=== PATIENT | female | born 1960 | race Caucasian/White ===

== ENCOUNTER 2019-12-20 13:55 | Emergency (ER) | payer OTHER ==
[2019-12-20 14:15] LABS: Glucose,Whole Blood 153 mg/dL (75-99)
[2019-12-20 14:18] VITALS: RESP 18; TEMP 97.8
[2019-12-20 14:43] LABS: Basophils % (A) 1 %; Eosinophils # (A) 0.2 k/uL (0-0.7); Eosinophils % (A) 3 %; HGB 14.8 gm/dL (11.4-16.0); Lymphocytes # (A) 1.5 k/uL (1.0-4.8); Lymphocytes % (A) 22 %; MCH 28.3 pg (25.0-35.0); MCHC 32.1 g/dL (31.0-37.0); MCV 88.1 fL (80.0-100.0); Mean Platelet Volume 7.5; Monocytes # (A) 0.4 k/uL (0-1.0); Monocytes % (A) 6 %; Neutrophils # (A) 4.5 k/uL (1.3-7.7); Neutrophils % (A) 65 %; Platelet Count 307 k/uL (150-450); RBC 5.23 m/uL (3.80-5.40); RDW 12.8 % (11.5-15.5); WBC 6.8 k/uL (3.8-10.6)
[2019-12-20 14:53] LABS: African American GFR (CKD) >90 (>60 ml/min/1.73 sqM); Anion Gap 11 mmol/L; Blood Urea Nitrogen 15 mg/dL (7-17); Calcium 9.4 mg/dL (8.4-10.2); Carbon Dioxide 24 mmol/L (22-30); Chloride 104 mmol/L (98-107); Glucose 160 mg/dL (74-99); Non-African American GFR(CKD) >90 (>60 ml/min/1.73 sqM); Potassium 4.6 mmol/L (3.5-5.1); Sodium 139 mmol/L (137-145)
[2019-12-20] MEDS ORDERED: valACYclovir HCL 1,000 MG TABLET PO STA (15:08)
[2019-12-20] MEDS ORDERED: ERYTHROMYCIN 5 MG/GM OPHTH OINT 3.5 GM TUBE LEFT EYE STA (15:09)
[2019-12-20] MEDS ORDERED: predniSONE 20 MG TAB PO STA (15:09)
[2019-12-20] MEDS ORDERED: LABETALOL 5 MG/ML VIAL MDV IVP STA (15:12)
--- NOTE | 2019-12-20 15:12 | ED ---
General Adult HPI - General Chief complaint: Neuro Symptoms/Deficit Stated complaint: facial numbness Time Seen by Provider: 12/20/19 14:12 Source: patient Mode of arrival: ambulatory Limitations: no limitations - History of Present Illness Initial comments: Dictation was produced using [employer] dictation software. please excuse any grammatical, word or spelling errors. Chief Complaint: 59-year-old female with left-sided facial weakness History of Present Illness: 59-year-old female she has past medical history of hypertension she presents today with acute onset left-sided facial weakness. She woke up with the symptoms at approximately 3 AM. She went to bed last night without any issues. Patient states that she went to an urgent care where they told her it was likely De La Garza palsy but instructed to come to the emergency department to obtain a CT to rule out CVA. Patient has no other complaints at this time. No visual deficits or visual issues. She does complain of some mild watering to the left eye. She denies any headache or pain complaints. The ROS documented in this emergency department record has been reviewed and confirmed by me. Those systems with pertinent positive or negative responses have been documented in the HPI. All other systems are other negative and/or noncontributory. PHYSICAL EXAM: General Impression: Alert and oriented x3, not in acute distress HEENT: Normocephalic atraumatic, extra-ocular movements intact, pupils equal and reactive to light bilaterally, mucous membranes moist. Cardiovascular: Heart regular rate and rhythm, S1&S2 audible, no murmurs, rubs or gallops Chest: Lungs clear to auscultation bilaterally, no rhonchi, no wheeze, no rales Abdomen: Bowel sounds present, abdomen soft, non-tender, non-distended, no organomegaly Musculoskeletal: Pulses present and equal in all extremities, no peripheral edema Motor: no focal deficits noted Neurological: Left-sided facial droop with weakness to left periorbital muscles and left lateral periorbital tissues, no focal motor or sensory deficits noted Skin: Intact with no visualized rashes Psych: Normal affect and mood ED course: 59-year-old female with clinical presentation consistent with De La Garza palsy. As upon arrival shows blood pressure 214/100, rest of vital signs within acceptable limits. Laboratory evaluation obtained. CBC unremarkable. Metabolic panel is negative. Patient observed in emergency department for couple hours with no change. At this point no concern for CVA given that there are no other focal neurologic deficits. No lateral rectus palsy or cranial nerves deficit to suggest brainstem stroke. Patient's well-appearing at bedside. No skin changes to the face. Patient counseled on appropriate cornea care. She also started on antivirals and steroids medications patient given referral to ophthalmology for outpatient management of cornea care. Patient told to return to the emergency department she develops any new or worsening neurologic symptoms. She is understandable and agreeable to plan. Other return parameters discussed. All questions answered. Patient's blood pressure was persistently high. She was given labetalol. She reports that she has chronic hypertension. She has an appointment with her primary care doctor for outpatient management of blood pressure issues. EKG interpretation: Ventricular rate 99, sinus rhythm, TX interval 166, QRS 76, QTC 451. No TX prolongation, no QTC prolongation, no ST or T-wave changes noted. EKG compared to [default value] showing no changes. Overall, this EKG is unremarkable - Related Data Previous Rx's Medication Instructions Recorded Artificial Tears-Hypromellose 1 drops LEFT EYE TID #1 bottle 12/20/19 [Artificial Tear Drops] Erythromycin Ophth Oint [Romycin 1 applic LEFT EYE DAILY #1 bottle 12/20/19 Ophth Oint] predniSONE 80 mg PO DAILY 7 Days #14 tab 12/20/19 valACYclovir HCL [Valtrex] 1,000 mg PO DAILY 7 Days #7 tablet 12/20/19 Allergies Allergy/AdvReac Type Severity Reaction Status Date / Time sulfamethoxazole Allergy Anaphylaxis Verified 12/20/19 14:40 [From Bactrim] trimethoprim [From Bactrim] Allergy Anaphylaxis Verified 12/20/19 14:40 codeine AdvReac Nausea & Verified 12/20/19 14:40 Vomiting Review of Systems ROS Statement: Those systems with pertinent positive or pertinent negative responses have been documented in the HPI. ROS Other: All systems not noted in ROS Statement are negative. Past Medical History Past Medical History: Hypertension Past Surgical History: No Surgical Hx Reported Past Psychological History: No Psychological Hx Reported Smoking Status: Never smoker Past Alcohol Use History: None Reported Past Drug Use History: None Reported General Exam Limitations: no limitations Course Vital Signs 12/20/19 12/20/19 12/20/19 13:56 14:05 14:21 Temperature 98.2 F 97.8 F Pulse Rate 95 89 80 Respiratory 20 18 18 Rate Blood Pressure 250/118 215/117 214/100 O2 Sat by Pulse 98 97 98 Oximetry Medical Decision Making - Lab Data Result diagrams: 12/20/19 14:24 12/20/19 14:24 Lab Results 12/20/19 12/20/19 12/20/19 Range/Units 14:13 14:24 14:24 WBC 6.8 (3.8-10.6) k/uL RBC 5.23 (3.80-5.40) m/uL Hgb 14.8 (11.4-16.0) gm/dL Hct 46.0 (34.0-46.0) % MCV 88.1 (80.0-100.0) fL MCH 28.3 (25.0-35.0) pg MCHC 32.1 (31.0-37.0) g/dL RDW 12.8 (11.5-15.5) % Plt Count 307 (150-450) k/uL Neutrophils % 65 % Lymphocytes % 22 % Monocytes % 6 % Eosinophils % 3 % Basophils % 1 % Neutrophils # 4.5 (1.3-7.7) k/uL Lymphocytes # 1.5 (1.0-4.8) k/uL Monocytes # 0.4 (0-1.0) k/uL Eosinophils # 0.2 (0-0.7) k/uL Basophils # 0.0 (0-0.2) k/uL Sodium 139 (137-145) mmol/L Potassium 4.6 (3.5-5.1) mmol/L Chloride 104 (98-107) mmol/L Carbon Dioxide 24 (22-30) mmol/L Anion Gap 11 mmol/L BUN 15 (7-17) mg/dL Creatinine 0.65 (0.52-1.04) mg/dL Est GFR (CKD-EPI)AfAm >90 (>60 ml/min/1.73 sqM) Est GFR (CKD-EPI)NonAf >90 (>60 ml/min/1.73 sqM) Glucose 160 H (74-99) mg/dL POC Glucose (mg/dL) 153 H (75-99) mg/dL POC Glu Film Waxer ID Abad [place] Calcium 9.4 (8.4-10.2) mg/dL Disposition Clinical Impression: De La Garza palsy Disposition: HOME SELF-CARE Condition: Good Instructions (If sedation given, give patient instructions): De La Garza Palsy (ED) Additional Instructions: The medications were sent to preferred pharmacy You were diagnosed with De La Garza palsy. ER cornea is at risk for injury which may lead to vision loss 1. You are instructed to provide herself with artificial tears every 2 hours while awake. 2. At night, apply erythromycin and tape her eye shut. 3. You are advised to have an eye shield that does not make contact with the eye or eyelid 4. Follow-up with ophthalmology 5. Take antivirals and steroids as instructed Prescriptions: Artificial Tears-Hypromellose [Artificial Tear Drops] 1 drops LEFT EYE TID #1 bottle predniSONE 80 mg PO DAILY 7 Days #14 tab Erythromycin Ophth Oint [Romycin Ophth Oint] 1 applic LEFT EYE DAILY #1 bottle valACYclovir HCL [Valtrex] 1,000 mg PO DAILY 7 Days #7 tablet Is patient prescribed a controlled substance at d/c from ED?: No Referrals: Rogelio Mejia DO [Primary Care Provider] - 1-2 days Wilian Chavis MD [STAFF PHYSICIAN] - 1-2 days Time of Disposition: 15:35
[2019-12-20 15:29] LABS: Glucose,Whole Blood 112 mg/dL (75-99)
[2019-12-20 15:45] VITALS: BP 170/118; PULSE 82
== END 2019-12-20 15:49 | disposition home or self-care (01) ==
LOC: EC 13:55
DX: G51.0 Bell's palsy (principal); I10 Essential (primary) hypertension; Z88.1 Allergy status to other antibiotic agents; Z88.2 Allergy status to sulfonamides; Z88.5 Allergy status to narcotic agent
CPT/HCPCS: 36415; 80048; 85025; 99284; J7512

== ENCOUNTER 2021-07-10 11:22 | Inpatient (IN) | payer OTHER ==
[2021-07-10 12:09] LABS: Basophils # (A) 0.1 k/uL (0-0.2); Basophils % (A) 1 %; Eosinophils # (A) 0.4 k/uL (0-0.7); Eosinophils % (A) 5 %; HCT 42.3 % (34.0-46.0); Lymphocytes # (A) 2.2 k/uL (1.0-4.8); Lymphocytes % (A) 26 %; MCH 31.3 pg (25.0-35.0); MCHC 35.5 g/dL (31.0-37.0); MCV 88.2 fL (80.0-100.0); Mean Platelet Volume 7.6; Monocytes # (A) 0.4 k/uL (0-1.0); Monocytes % (A) 5 %; Neutrophils % (A) 60 %; Platelet Count 285 k/uL (150-450); RDW 13.5 % (11.5-15.5); WBC 8.4 k/uL (3.8-10.6)
--- NOTE | 2021-07-10 12:09 | CT ---
EXAMINATION TYPE: CT brain wo con for TPA DATE OF EXAM: 07/10/2021 COMPARISON: None HISTORY: Right sided weakness TECHNIQUE: CT scan of the head performed without contour CT DLP: 1171 mGycm Automated exposure control for dose reduction was used. FINDINGS: No evidence for acute intracranial hemorrhage, midline shift or mass effect. The pereira-white matter di fferentiation is preserved. CSF spaces and ventricular system are normal in configuration. Posterior fossa contents are within normal limit. Mild patchy low-attenuation in the deep white matter periventricular region suggesting chronic microv ascular ischemic changes. There is streak artifact from the temporal bones which causes low-attenuation appearance to the brain stem. No acute orbital, osseous or soft tissue abnormalities seen. Paranasal sinuses and mastoid air cells are well aerated. There are sclerotic calcifications are seen in the intracranial internal carotid arteries. IMPRESSION: NO EVIDENCE FOR ACUTE INTRACRANIAL HEMORRHAGE, MIDLINE SHIFT OR MASS EFFECT. See body of report for incidental findings.
[2021-07-10 12:13] LABS: ALT 30 U/L (4-34); AST 24 U/L (14-36); African American GFR (CKD) >90 (>60 ml/min/1.73 sqM); Albumin 4.2 g/dL (3.5-5.0); Alkaline Phosphatase 94 U/L (38-126); Anion Gap 13 mmol/L; Blood Urea Nitrogen 16 mg/dL (7-17); Calcium 9.9 mg/dL (8.4-10.2); Carbon Dioxide 22 mmol/L (22-30); Chloride 105 mmol/L (98-107); Glucose 153 mg/dL (74-99); Non-African American GFR(CKD) >90 (>60 ml/min/1.73 sqM); Potassium 3.8 mmol/L (3.5-5.1); Sodium 140 mmol/L (137-145); Total Bilirubin 0.4 mg/dL (0.2-1.3)
--- NOTE | 2021-07-10 12:27 | ED ---
General Adult HPI - General Chief complaint: Weakness Stated complaint: rt sided weakness Source: patient Mode of arrival: ambulatory Limitations: no limitations - History of Present Illness Initial comments: 60-year-old female who presents to the emergency department with the acute onset of right-sided weakness. The patient states that she was at work when she had sudden onset of weakness in her right upper and right lower extremity. Symptom onset was at 10:45 AM. She denies any vision changes or speech difficulty. No previous history of stroke. Patient is not on any blood thinners. She denies a headache. No chest pain or shortness of breath. No fevers or chills. No other alleviating, precipitating or modifying factors - Related Data Home Medications Medication Instructions Recorded Confirmed No Known Home Medications 07/10/21 07/10/21 Allergies Allergy/AdvReac Type Severity Reaction Status Date / Time sulfamethoxazole Allergy Anaphylaxis Verified 07/10/21 12:45 [From Bactrim] trimethoprim [From Bactrim] Allergy Anaphylaxis Verified 07/10/21 12:45 codeine AdvReac Nausea & Verified 07/10/21 12:45 Vomiting Review of Systems ROS Statement: Those systems with pertinent positive or pertinent negative responses have been documented in the HPI. ROS Other: All systems not noted in ROS Statement are negative. Past Medical History Past Medical History: Hypertension Past Surgical History: No Surgical Hx Reported Past Psychological History: No Psychological Hx Reported Smoking Status: Never smoker Past Alcohol Use History: None Reported Past Drug Use History: None Reported General Exam Limitations: no limitations Course Vital Signs 07/10/21 07/10/21 07/10/21 11:25 12:01 13:00 Temperature 97.4 F L Pulse Rate 83 82 73 Respiratory 20 18 Rate Blood Pressure 216/111 239/101 222/111 O2 Sat by Pulse 94 L 98 Oximetry 07/10/21 07/10/21 13:47 14:58 Temperature Pulse Rate 90 80 Respiratory 18 18 Rate Blood Pressure 230/101 152/89 O2 Sat by Pulse 98 98 Oximetry EKG Findings - EKG Comments: EKG Findings:: EKG demonstrates a sinus rhythm with a ventricular rate of 84. Urine 122. QRS 84. QTC of 446. Some ST depression in lead 2 as well as V5 and V6. No acute ST segment elevation. Medical Decision Making - Medical Decision Making Upon arrival the patient was placed into room trauma 2. A thorough history and physical exam is performed. She is placed on continuous pulse ox and cardiac monitoring. NIH is assessed and is 54 weakness in the right upper, right lower extremity with ataxia. Code stroke is activated. Patient was immediately sent over for CT as well as CT angiography. The neuro cutting machine offbearer is paged and we are awaiting call back. Laboratory studies are reviewed and are all within normal limits. CT of the patient's brain is performed which demonstrates no evidence for acute intracranial hemorrhage, midline shift or mass effect she is reevaluated and has had complete improvement in her symptoms. Due to this the patient is not a TPA candidate. I did recommend admission for concern of possible TIA. Patient remains hypertensive and therefore she is given 10 mg of labetalol. Patient also given aspirin and a statin. Patient admitted to the hospital. Spoke with who agreed to admit the patient. I will place neurology consult. Patient remained in neurologically stable condition and was taken to the floor - Lab Data Result diagrams: 07/10/21 11:58 07/10/21 11:58 Lab Results 07/10/21 07/10/21 07/10/21 Range/Units 11:58 11:58 11:58 WBC 8.4 (3.8-10.6) k/uL RBC 4.80 (3.80-5.40) m/uL Hgb 15.0 (11.4-16.0) gm/dL Hct 42.3 (34.0-46.0) % MCV 88.2 (80.0-100.0) fL MCH 31.3 (25.0-35.0) pg MCHC 35.5 (31.0-37.0) g/dL RDW 13.5 (11.5-15.5) % Plt Count 285 (150-450) k/uL MPV 7.6 Neutrophils % 60 % Lymphocytes % 26 % Monocytes % 5 % Eosinophils % 5 % Basophils % 1 % Neutrophils # 5.0 (1.3-7.7) k/uL Lymphocytes # 2.2 (1.0-4.8) k/uL Monocytes # 0.4 (0-1.0) k/uL Eosinophils # 0.4 (0-0.7) k/uL Basophils # 0.1 (0-0.2) k/uL PT 9.7 (9.0-12.0) sec INR 0.9 (<1.2) APTT 22.5 (22.0-30.0) sec Sodium 140 (137-145) mmol/L Potassium 3.8 (3.5-5.1) mmol/L Chloride 105 (98-107) mmol/L Carbon Dioxide 22 (22-30) mmol/L Anion Gap 13 mmol/L BUN 16 (7-17) mg/dL Creatinine 0.66 (0.52-1.04) mg/dL Est GFR (CKD-EPI)AfAm >90 (>60 ml/min/1.73 sqM) Est GFR (CKD-EPI)NonAf >90 (>60 ml/min/1.73 sqM) Glucose 153 H (74-99) mg/dL Calcium 9.9 (8.4-10.2) mg/dL Total Bilirubin 0.4 (0.2-1.3) mg/dL AST 24 (14-36) U/L ALT 30 (4-34) U/L Alkaline Phosphatase 94 (38-126) U/L Troponin I (0.000-0.034) ng/mL Total Protein 7.0 (6.3-8.2) g/dL Albumin 4.2 (3.5-5.0) g/dL TSH (0.465-4.680) mIU/L Urine Color Urine Appearance (Clear) Urine pH (5.0-8.0) Ur Specific [place] (1.001-1.035) Urine Protein (Negative) Urine Glucose (UA) (Negative) Urine Ketones (Negative) Urine Blood (Negative) Urine Nitrite (Negative) Urine Bilirubin (Negative) Urine Urobilinogen (<2.0) mg/dL Ur Leukocyte Esterase (Negative) Urine RBC (0-5) /hpf Urine WBC (0-5) /hpf Ur Squamous Epith Cells (0-4) /hpf Urine Bacteria (None) /hpf 07/10/21 07/10/21 07/10/21 Range/Units 11:58 11:58 12:20 WBC (3.8-10.6) k/uL RBC (3.80-5.40) m/uL Hgb (11.4-16.0) gm/dL Hct (34.0-46.0) % MCV (80.0-100.0) fL MCH (25.0-35.0) pg MCHC (31.0-37.0) g/dL RDW (11.5-15.5) % Plt Count (150-450) k/uL MPV Neutrophils % % Lymphocytes % % Monocytes % % Eosinophils % % Basophils % % Neutrophils # (1.3-7.7) k/uL Lymphocytes # (1.0-4.8) k/uL Monocytes # (0-1.0) k/uL Eosinophils # (0-0.7) k/uL Basophils # (0-0.2) k/uL PT (9.0-12.0) sec INR (<1.2) APTT (22.0-30.0) sec Sodium (137-145) mmol/L Potassium (3.5-5.1) mmol/L Chloride (98-107) mmol/L Carbon Dioxide (22-30) mmol/L Anion Gap mmol/L BUN (7-17) mg/dL Creatinine (0.52-1.04) mg/dL Est GFR (CKD-EPI)AfAm (>60 ml/min/1.73 sqM) Est GFR (CKD-EPI)NonAf (>60 ml/min/1.73 sqM) Glucose (74-99) mg/dL Calcium (8.4-10.2) mg/dL Total Bilirubin (0.2-1.3) mg/dL AST (14-36) U/L ALT (4-34) U/L Alkaline Phosphatase (38-126) U/L Troponin I <0.012 (0.000-0.034) ng/mL Total Protein (6.3-8.2) g/dL Albumin (3.5-5.0) g/dL TSH 2.750 (0.465-4.680) mIU/L Urine Color Light Yellow Urine Appearance Clear (Clear) Urine pH 5.0 (5.0-8.0) Ur Specific [place] 1.012 (1.001-1.035) Urine Protein Negative (Negative) Urine Glucose (UA) Negative (Negative) Urine Ketones Negative (Negative) Urine Blood Negative (Negative) Urine Nitrite Negative (Negative) Urine Bilirubin Negative (Negative) Urine Urobilinogen <2.0 (<2.0) mg/dL Ur Leukocyte Esterase Trace H (Negative) Urine RBC <1 (0-5) /hpf Urine WBC 1 (0-5) /hpf Ur Squamous Epith Cells 1 (0-4) /hpf Urine Bacteria Rare H (None) /hpf Disposition Clinical Impression: Right sided weakness, TIA (transient ischemic attack), Accelerated hypertension Disposition: ADMITTED IP TO THIS HOSP Condition: Stable Is patient prescribed a controlled substance at d/c from ED?: No Decision to Admit Reason: Admit from EC Decision Date: 07/10/21 Decision Time: 14:14
[2021-07-10 12:37] LABS: INR 0.9 (<1.2); Partial Thromboplastin Time 22.5 sec (22.0-30.0); Prothrombin Time 9.7 sec (9.0-12.0)
[2021-07-10 13:10] LABS: Appearance,Urine Clear (Clear); Bacteria,Urine Rare /hpf; Bilirubin,Urine Negative (Negative); Blood,Urine Negative (Negative); Color,Urine Light Yellow; Glucose,Urine (UA) Negative (Negative); Ketones,Urine Negative (Negative); Leukocyte Esterase,Urine Trace (Negative); Nitrite,Urine Negative (Negative); Protein,Urine Negative (Negative); RBC,Urine <1 /hpf (0-5); Specific Gravity,Urine 1.012 (1.001-1.035); Squamous Epithelial Cell,Urine 1 /hpf (0-4); Urobilinogen,Urine <2.0 mg/dL (<2.0); WBC,Urine 1 /hpf (0-5)
--- NOTE | 2021-07-10 13:21 | CT ---
EXAMINATION TYPE: CT angio head neck DATE OF EXAM: 07/10/2021 COMPARISON: CT brain same day HISTORY: 60-year-old female right-sided weakness, acute stroke suspected, neurologic deficit. TECHNIQUE: Contiguous axial scanning of the head and neck performed with IV Contrast, patient injecte d with 65 mL of Isovue 370. Coronal/sagittal MIP reconstructions performed. 3-D reconstructions gener ated on a dedicated independent workstation. CT DLP: 961.3 mGycm Automated exposure control for dose reduction was used. FINDINGS: NECK: Mild biapical pleural-parenchymal scarring. Bovine configuration to the aortic arch. The left vertebral artery is dominant. Both vessels appear patent throughout their course. The right common carotid artery is patent. Tortuous course of the right internal carotid artery which remains patent. There is partial retrophar yngeal course noted. The left common carotid artery is patent. Tortuous course of the upper left internal carotid artery which remains patent. NASCET criteria was utilized. HEAD: Dominant left vertebral artery. V4 segment right vertebral artery after the PICA takeoff becomes even more hypoplastic. The basilar artery and remainder of the posterior circulation appear patent. The distal basilar arter y is tortuous. Scattered mild atherosclerotic calcifications within the bilateral carotid siphons. Both vertebral arteries in the remainder of the anterior circulation are maintained. Incidental venous angioma in the region of the medial left temporal lobe. No aneurysmal changes identified. IMPRESSION: 1. NECK: DOMINANT LEFT VERTEBRAL ARTERY. NO HEMODYNAMICALLY SIGNIFICANT ICA STENOSIS ON EITHER SIDE. 2. HEAD: AGAIN, DOMINANT LEFT VERTEBRAL ARTERY. INCIDENTAL VENOUS ANGIOMA MEDIAL LEFT TEMPORAL LOBE. NO LARGE VESSEL INTRACRANIAL ARTERIAL OCCLUSION, SIGNIFICANT STENOSIS, OR ANEURYSMAL CHANGE IS IDENTI FIED.
--- NOTE | 2021-07-10 13:27 | XR ---
EXAMINATION TYPE: XR chest 2V DATE OF EXAM: 07/10/2021 COMPARISON: None HISTORY: 60-year-old female confusion, right arm numbness, altered mental status TECHNIQUE: PA and lateral views FINDINGS: Heart normal size. Aorta and pulmonary vasculature within normal limits. Some strandy atelectasis lef t mid and lower lung. No consolidation or pleural effusion. IMPRESSION: Some strandy atelectasis on the left. Otherwise, no acute cardiopulmonary process.
[2021-07-10] MEDS ORDERED: ATORVASTATIN 40 MG TAB PO STA (14:10)
[2021-07-10] MEDS ORDERED: LABETALOL 5 MG/ML VIAL MDV IVP STA (14:10)
[2021-07-10] MEDS ORDERED: ASPIRIN 325 MG TAB PO STA (14:10)
[2021-07-10] MEDS ORDERED: ALPRAZolam 0.25 MG TAB PO PRN (17:23)
--- NOTE | 2021-07-10 18:06 | HP ---
HISTORY AND PHYSICAL I am covering for Dr. Mayen. CHIEF COMPLAINT: Weakness of the right upper and lower limbs. HISTORY OF PRESENT ILLNESS: This 60-year-old woman with a past medical history of multiple medical problems including hypertension, being followed by Dr. Mayen in the outpatient setting, this morning had acute onset of right-sided weakness. The patient was apparently at work and the patient the right upper limb was flailing. The patient thought something was wrong and the patient came to [facility] and was admitted for further evaluation and treatment. Symptom onset at 10:45, the patient was evaluated. The patient was not a candidate for tPA. The weakness gradually improved and now the patient reports that the upper right upper arm is almost back to the normal. The evaluation in the ER also showed glucose 153, otherwise Covid-[address] scan and CT angio of the brain which I reviewed personally showed dominant vertebral artery, otherwise venous angioma of the left temporal lobe and no large vessel occlusion stenosis or other abnormality was noted. The patient was admitted for further evaluation and treatment. A CT scan of the brain showed no evidence of any acute infarction. There is no history of fever, rigors, chills at this time. PAST MEDICAL HISTORY: Hypertension. MEDICATIONS: Prior to admission home medications are aspirin and Lipitor. ALLERGIES: BACTRIM and CODEINE. FAMILY HISTORY: No history of heart disease or strokes in the family. SOCIAL HISTORY: No history of smoking. No alcohol intake. REVIEW OF SYSTEMS: ENT as mentioned earlier. Cardiovascular no angina. Respiratory no cough or hemoptysis. GI no nausea. no dysuria. Nervous System as mentioned earlier. Musculoskeletal as mentioned. Dermatologic as mentioned. Hematologic no history of anemia. Endocrine no history of diabetes or hypothyroidism. Constitutional as mentioned. Dermatologic negative. Psychiatric as mentioned earlier. PHYSICAL EXAMINATION: Alert oriented x3. Pulse is 80, blood pressure is 152/89, blood pressure is 216/111, respirations 20, temperature 97.4, pulse ox 94% on room air. HEENT: Conjunctivae normal. Oral mucosa moist. NECK: No jugular venous distention. No lymph node enlargement. CARDIOVASCULAR: S1 and S2. LUNGS: Breath sounds diminished at the bases. No rhonchi, no crackles. ABDOMEN: Soft, obese, nontender. No mass palpable. NERVOUS SYSTEM: Higher functions as mentioned. Cranial nerves 2 through 12 grossly intact. Otherwise motor system minimal weakness of the right upper limb. Reflexes are normal. No sensory dysfunction. No cerebellar incoordination. Gait is normal. SKIN: No ulcers. JOINTS: No active deformity or arthropathy. LAB: CBC within norms, glucose 156. The rest of the labs are normal. ASSESSMENT: 1. Acute right-sided stroke, possibly left hemispheric lesion, present on admission. 2. Elevated random glucose. 3. Hypertension. 4. Accelerated hypertension, hypertensive urgency. 5. Obesity with body mass index of 43.5. RECOMMENDATIONS AND DISCUSSION: This 60-year-old woman who presented with multiple medical patient and acute stroke. I would recommend Lipitor and as well as aspirin. Neurology consultation. Neurovascular workup and neuro checks. Prognosis guarded because of multiple complex medical issues. Permissive hypertension also will be followed because of the hypertension. See orders for details. Prognosis guarded. Further recommendations to follow. MMODL / IJN: [id number] /
[2021-07-10] MEDS ORDERED: amLODIPine 5 MG TAB PO STA (21:25)
[2021-07-10] MEDS: hydrALAZINE HCL 20 MG/ML 1 ML VIAL IVP PRN (21:39)
[2021-07-10] MEDS: HEPARIN SODIUM,PORCINE/PF 5,000 UNIT/0.5 ML SYRINGE SQ SCH (21:39)
[2021-07-11 01:19] LABS: Hemoglobin A1C 7.7 % (4.0-6.0)
[2021-07-11] MEDS: PANTOPRAZOLE 40 MG TABLET PO SCH (06:34)
[2021-07-11] MEDS ORDERED: ACETAMINOPHEN TAB 325 MG TAB PO PRN (06:45)
[2021-07-11 07:37] LABS: Basophils # (A) 0.1 k/uL (0-0.2); Basophils % (A) 1 %; Eosinophils # (A) 0.4 k/uL (0-0.7); Eosinophils % (A) 5 %; HCT 43.4 % (34.0-46.0); Lymphocytes # (A) 1.6 k/uL (1.0-4.8); Lymphocytes % (A) 23 %; MCH 29.5 pg (25.0-35.0); MCHC 32.4 g/dL (31.0-37.0); Mean Platelet Volume 7.5; Monocytes # (A) 0.3 k/uL (0-1.0); Monocytes % (A) 5 %; Neutrophils # (A) 4.5 k/uL (1.3-7.7); Neutrophils % (A) 65 %; Platelet Count 274 k/uL (150-450); RBC 4.77 m/uL (3.80-5.40); RDW 13.4 % (11.5-15.5); WBC 6.9 k/uL (3.8-10.6)
[2021-07-11 07:45] LABS: African American GFR (CKD) >90 (>60 ml/min/1.73 sqM); Anion Gap 7 mmol/L; Blood Urea Nitrogen 12 mg/dL (7-17); Calcium 9.5 mg/dL (8.4-10.2); Carbon Dioxide 25 mmol/L (22-30); Chloride 107 mmol/L (98-107); Glucose 173 mg/dL (74-99); Non-African American GFR(CKD) >90 (>60 ml/min/1.73 sqM); Potassium 4.3 mmol/L (3.5-5.1); Sodium 139 mmol/L (137-145)
[2021-07-11] MEDS: HEPARIN SODIUM,PORCINE/PF 5,000 UNIT/0.5 ML SYRINGE SQ SCH ×2 (08:23→20:03)
[2021-07-11] MEDS ORDERED: ATORVASTATIN 40 MG TAB PO SCH (09:00)
[2021-07-11] MEDS ORDERED: ASPIRIN 325 MG TAB PO SCH (09:00)
--- NOTE | 2021-07-11 10:19 | P.CNNES ---
History of Present Illness Consult date: 07/11/21 Requesting physician: Diann Collins Reason for Consult: acute right sided weakness, suspected tia History of Present Illness: This is a 60-year-old woman with no medical history who presented emergency department on 07/10/2021 for acute right-sided weakness. Patient the symptoms of onset was around 10:45 AM on the 07/10/2021 and she presented to our facility that same day around 11:22AM. He said at around that time she developed right- sided weakness but today she didn't have any other associated the neurological d eficits appeared she denies of any speech difficulty or any vision change. She denies of any headaches, paresthesia, difficulty swallowing. She denies history of stroke or tia in the past. She denies history of hypertension. She is not any any antiplatelets or anticoagulation. She denies being on any medications. Some of the workup in the hospital consisted of: On initial presentation the patient blood pressure was 216/111, heart rate of 83, rest of 20, temperature of 97.4 Fahrenheit oral and pulse ox of 94% room air. In the ED NIH on presentation was a 5 (for weakness in the right upper extremity and right lower extremity). Patient had a CT of the head and it's reported as no evidence for acute intracranial hemorrhage, midline shift or mass effect. CT angiography of the head and neck was reported as the neck is reported as dominant left vertebral artery. No hemodynamically significant ICA stenosis on either side. While a CT of the head is reported again, dominant left vertebral artery. Incidental venous angioma medial left temporal lobe. No large vessel intracranial arterial occlusion, significant stenosis or aneurysm change is identified. As a result stroke code was activated. The ED team spoke with the stroke attending control and recovery special tactics. It seems that the patient's symptoms completely resolved and therefore no IV TPA or any intervention is done. Because of the elevated blood pressure the patient was given IV labetalol. CBC with differential is unremarkable. Chemistry panel is on initial presentation her glucose is 153 which is mildly elevated and her hemoglobin is 7.7. Otherwise the rest of the chemistry panel is unremarkable. TSH is 2.75 which is within normal limits at. Review of Systems Review of system: The 12 point system was reviewed and apparent positive and negative per HPI. Past Medical History Past Medical History: Hypertension Additional Past Medical History / Comment(s): carpal tunnel, bells palsey History of Any Multi-Drug Resistant Organisms: None Reported Past Surgical History: No Surgical Hx Reported Past Anesthesia/Blood Transfusion Reactions: Unable to Obtain Past Psychological History: No Psychological Hx Reported Smoking Status: Never smoker Past Alcohol Use History: None Reported Past Drug Use History: None Reported Medications and Allergies Home Medications Medication Instructions Recorded Confirmed Type No Known Home Medications 07/10/21 07/10/21 History Allergies Allergy/AdvReac Type Severity Reaction Status Date / Time sulfamethoxazole Allergy Anaphylaxis Verified 07/10/21 12:45 [From Bactrim] trimethoprim [From Bactrim] Allergy Anaphylaxis Verified 07/10/21 12:45 codeine AdvReac Nausea & Verified 07/10/21 12:45 Vomiting Physical Examination - Vital Signs Vital Signs: Vital Signs Temp Pulse Pulse Pulse Resp BP BP 07/11/21 08:12 98.3 F 82 20 192/93 07/11/21 03:32 98.2 F 72 14 159/68 07/10/21 23:22 98.0 F 76 12 176/73 07/10/21 22:12 78 155/71 07/10/21 21:04 98.5 F 72 18 171/89 07/10/21 20:00 98.2 F 93 12 246/107 07/10/21 19:18 98.2 F 70 18 168/93 07/10/21 17:45 82 18 168/87 07/10/21 14:58 80 18 152/89 07/10/21 13:47 90 18 230/101 07/10/21 13:00 73 18 222/111 07/10/21 12:01 82 239/101 07/10/21 11:25 97.4 F L 83 20 216/111 Pulse Ox 07/11/21 08:12 97 07/11/21 03:32 98 07/10/21 23:22 96 07/10/21 22:12 07/10/21 21:04 98 07/10/21 20:00 93 L 07/10/21 19:18 97 07/10/21 17:45 96 07/10/21 14:58 98 07/10/21 13:47 98 07/10/21 13:00 98 07/10/21 12:01 07/10/21 11:25 94 L Intake and Output 09/07/11/21 07/11/21 22:59 06:59 14:59 Other: Voiding Method Toilet Toilet # Voids 1 2 Weight 121 kg GENERAL: The patient is morbid obese, lying in bed and is not in acute distre ss. CHEST: The heart rate is regular rate rhythm. No murmurs to auscultation. No carotid bruit bilaterally. LUNG: Clear to auscultation bilaterally no wheezing noted throughout. Not labored breathing. ABDOMEN/GI: Bowel sounds present in all 4 quadrants. No tenderness to palpation throughout. NEUROLOGICAL: Higher mental function: The patient is awake, alert, oriented to self, place and time. Patient is following commands. No aphasia and no neglect. Cranial nerves: The pupils are round, equal and reactive to light and accommodation. Visual gusman are full to confrontation throughout. Extraocular movement is intact no nystagmus is noted. Facial sensation is normal to touch throughout. The facial strength is normal throughout. Hearing is normal bilaterally to hand rub. Tongue is midline and moved [id number] without any difficulty. No dysarthria is noted. Shoulder shrug is normal bilaterally. Motor: Gait is normal. The strength is 5 over 5 throughout. Normal tone and bulk. Cerebellum: Normal finger to nose heel to renteria bilaterally. Sensation: Sensation is normal to touch throughout. Reflexes (right/left): 2+ throughout. Plantars are downgoing bilaterally. Results PT of 9.7, INR 0.9 and PTT of 22.5 Urinalysis is negative for urinary tract infection. [place] virus PCR was not detected - Laboratory Findings CBC and BMP: 07/11/21 07:12 07/11/21 07:12 Abnormal Lab Findings: Abnormal Labs 07/10/21 07/10/21 07/10/21 11:58 11:58 12:20 Glucose 153 H Hemoglobin A1c 7.7 H Ur Leukocyte Esterase Trace H Urine Bacteria Rare H 07/11/21 07:12 Glucose 173 H Hemoglobin A1c Ur Leukocyte Esterase Urine Bacteria Assessment and Plan Assessment: Transient ischemic attack with presentation of right-sided weakness. No IV TPA since the patient's symptoms resolved. New onset Hypertension and on presentation was escalated in systolic of 210 to 230's. Incidental venous angioma medial left temporal lobe New onset Diabetes mellitus (HbA1c 7.7) Morbid obesity. Plan: I ordered MRI of the brain with and without to rule out any ischemia not seen on the CT of the head even though her symptoms resolved and for further investigation of this venous angioma if anything changes seen on MRI the brain. In the ED the patient was loaded with aspirin 325 once then was started on aspirin 325 daily. I'll decrease the aspirin to 81mg daily. And if MRI Brain is negative for any mass or any lesion (since has venous abnormality to avoid increase risk of bleeding) besides possible ischemic stroke then we'll start the patient on dual antiplatelets of aspirin 81 and Plavix 75 mg daily. Continue Lipitor 40 mg daily at bedtime. 2-D echo, lipid panel is ordered and is pending Neuro checks to be continued PT, OT and AUTOMATIC TELLER MACHINE SERVICER are consulted Recommend the systolic blood pressure of for now to be between 160-180 for today and bring it down to 140 by tomorrow. We'll defer the management to the primary team. We'll defer the rest of the medical management to primary team Upon discharged, the patient needs to follow-up with a neurologist within 1-2 weeks as outpatient. The plan is discussed with the patient's nurse. Thank you for the consultation. Stevo Knott M.D. Neuro-hospitalist Time with Patient: Greater than 30
[2021-07-11] MEDS: ACETAMINOPHEN TAB 325 MG TAB PO PRN ×3 (11:43→20:05)
[2021-07-11] MEDS: hydrALAZINE HCL 20 MG/ML 1 ML VIAL IVP PRN (11:43)
[2021-07-11 12:16] LABS: Chol/HDL Ratio 5.95; Cholesterol 238 mg/dL (0-200); LDL Cholesterol,Calculated 150.8 mg/dL (0.0-131.0)
[2021-07-11 15:24] VITALS: RESP 18
[2021-07-11] MEDS ORDERED: HYDROmorphone 0.5 MG/0.5 ML SYRINGE IVP PRN (18:06)
[2021-07-11] MEDS ORDERED: Acetaminophen-Codeine 300-30mg TAB PO PRN (18:06)
--- NOTE | 2021-07-11 18:14 | ECHOF ---
Referral Reason:stroke MEASUREMENTS -------- HEIGHT: 162.6 cm WEIGHT: 122.9 kg BP: 152/89 RVIDd: 3.1 cm (< 3.3) IVSd: 1.3 cm (0.6 - 1.1) LVIDd: 4.1 cm (3.9 - 5.3) LVPWd: 1.3 cm (0.6 - 1.1) IVSs: 1.6 cm LVIDs: 2.8 cm LVPWs: 1.7 cm LA Diam: 3.5 cm (2.7 - 3.8) LAESV Index (A-L): 28.09 ml/m Ao Diam: 2.9 cm (2.0 - 3.7) AV Cusp: 1.9 cm (1.5 - 2.6) MV EXCURSION: 15.676 mm (> 18.000) MV EF SLOPE: 42 mm/s (70 - 150) EPSS: 0.6 cm MV E Joshua: 0.94 m/s MV DecT: 263 ms MV A Joshua: 1.20 m/s MV E/A Ratio: 0.78 AV maxP.27 mmHg AV meanP.00 mmHg AR PHT: 673 ms RAP: 5.00 mmHg RVSP: 31.42 mmHg FINDINGS -------- Sinus rhythm. This was a technically adequate study. The left ventricular size is normal. There is mild concentric left ventricular hypertrophy. Overa ll left ventricular systolic function is normal with, an EF between 60 - 65 %. The right ventricle is normal in size. Normal LA size by volume 22+/-6 ml/m2. The right atrium is normal in size. Interatrial and interventricular septum intact. There is mild aortic valve sclerosis. There is mild aortic regurgitation. There is mild aortic st enosis present. Peak/mean gradient across the Aortic Valve is 19.27mmHg / 10.00mmHg. The mitral valve leaflets are mildly thickened. Mild mitral annular calcification present. Mild m itral regurgitation is present. Mild tricuspid regurgitation present. Right ventricular systolic pressure is normal at < 35 mmHg. The pulmonic valve was not well visualized. The aortic root size is normal. IVC Not well visulized. There is no pericardial effusion. CONCLUSIONS -------- 1. The left ventricular size is normal. 2. There is mild concentric left ventricular hypertrophy. 3. Overall left ventricular systolic function is normal with, an EF between 60 - 65 %. 4. There is mild aortic valve sclerosis. 5. There is mild aortic regurgitation. 6. There is mild aortic stenosis present. 7. Peak/mean gradient across the Aortic Valve is 19.27mmHg / 10.00mmHg. 8. The mitral valve leaflets are mildly thickened. 9. Mild mitral annular calcification present. 10. Mild mitral regurgitation is present. 11. Mild tricuspid regurgitation present. 12. There is no pericardial effusion. DISC PAD GRINDER: YANICK Maddox
--- NOTE | 2021-07-11 20:15 | PN ---
PROGRESS NOTE DATE OF SERVICE: 07/11/2021 I am covering for Dr. Mayen. This 60-year-old woman was admitted with significant weakness of the right upper limb indicating left-sided stroke, is being closely monitored. No chest pain. No palpitations. No fever. MRI is being planned. PHYSICAL EXAMINATION: Alert and oriented times three. Pulse 79, blood pressure 173/85, respiration 18, temperature 98 degrees, pulse ox 97% on room air. HEENT: Conjunctivae normal. NECK: No JVD. CARDIOVASCULAR: S1, S2 muffled. RESPIRATORY: Breath sounds diminished at the bases. A few scattered rhonchi and crackles. ABDOMEN: Soft, obese. Nontender. LEGS: No edema. No swelling. NERVOUS SYSTEM: No focal deficits. LABORATORY DATA: CBC within normal limits. Glucose 173, triglycerides 236, cholesterol 238. LDL is 150. ASSESSMENT: 1. Acute right sided stroke with possibly left hemispheric lesion, present on admission. 2. Elevated random glucose. 3. Hypertension. 4. Accelerated hypertension, hypertensive urgency. 5. Hyperlipidemia. 6. Hypertriglyceridemia. 7. Obesity with body mass index of 43.5. RECOMMENDATIONS AND DISCUSSION: I recommend to continue current medications, management and symptomatic treatment. Continue the current regimen. The patient is also on a moderate dose of Lipitor. Otherwise, we will continue to monitor. Continue with antiplatelet agents. Closely follow with Neurology. Further recommendations to follow. Dr. Mayen will follow tomorrow. Await MRI. MMBENJAMINL / DIANE: [id number] /
[2021-07-12] MEDS: ACETAMINOPHEN TAB 325 MG TAB PO PRN (04:50)
[2021-07-12] MEDS: PANTOPRAZOLE 40 MG TABLET PO SCH (06:56)
[2021-07-12] MEDS: HEPARIN SODIUM,PORCINE/PF 5,000 UNIT/0.5 ML SYRINGE SQ SCH (08:51)
[2021-07-12 08:54] VITALS: PULSE 88; TEMP 98.5
[2021-07-12] MEDS ORDERED: ASPIRIN 81 MG PO SCH (09:00)
--- NOTE | 2021-07-12 09:11 | MR ---
EXAMINATION TYPE: MR brain wo/w con DATE OF EXAM: 07/12/2021 COMPARISON: CT brain and CT angiogram head and neck 07/10/2021 HISTORY: Transient R sided weakness, Incidental venous anomaly TECHNIQUE: Multiplanar, multisequence images of the brain and brainstem is performed without and with IV contras t, utilizing 12 mL intravenous Gadavist . FINDINGS: Diffusion weighted images demonstrate no evidence of a recent infarct or other diffusion ab normality. There is no extra-axial fluid collection. There are confluent and scattered areas of hyp erintensity in the periventricular, pericallosal, subcortical white matter, increased signal foci als o present within the jocelyn. The ventricular system and cisternal spaces are normal in size and appeara nce. The brain volume is age appropriate. Midline structures demonstrate normal morphology. The craniocervical junction appears within normal limits. Post contrast images demonstrate no abnormal enhancement, venous enhancement along the media l left temporal lobe is again seen as described in CT angiogram of the neck and head. The dural venou s sinuses appear patent. The visualized sinuses are clear and the globes are intact. IMPRESSION: Nonspecific white matter demyelination could be due to chronic small vessel ischemic mcduffie ges, correlate to exclude multiple sclerosis, hypertension, migraine headaches, vasculitis, Lyme dise ase
[2021-07-12 16:27] VITALS: BP 161/76
--- NOTE | 2021-07-12 16:43 | P.DS ---
Providers Date of admission: 07/12/21 11:49 Attending physician: Jacky Mayen Consults: 07/10/21 14:17 Consult Physician Urgent Consulting Provider: Stevo Knott Consult Reason/Comments: acute right sided weakness, suspected tia Do you want consulting provider notified?: Yes Primary care physician: Jacky Mayen [facility] Course: TIA. Patient cleared by neurology. MRI nominal. treat for htn and gave medic ation for cholesterol and anticoagulation. Patient stable for discharge Patient Condition at Discharge: Stable Plan - Discharge Summary Discharge Rx Participant: Yes New Discharge Prescriptions: New Clopidogrel [Plavix] 75 mg PO DAILY #30 tab amLODIPine [Norvasc] 5 mg PO DAILY #30 tab Atorvastatin [Lipitor] 40 mg PO HS #30 tab Discharge Medication List Atorvastatin [Lipitor] 40 mg PO HS #30 tab 07/12/21 [Rx] Clopidogrel [Plavix] 75 mg PO DAILY #30 tab 07/12/21 [Rx] amLODIPine [Norvasc] 5 mg PO DAILY #30 tab 07/12/21 [Rx] Follow up Appointment(s)/Referral(s): Jacky Mayen MD [Primary Care Provider] - 1-2 days Patient Instructions/Handouts: Transient Ischemic Attack (DC), Type 2 Diabetes in Adults: New Diagnosis (DC), Hypertension (DC), Hyperlipidemia (DC)
[2021-07-12] MEDS ORDERED: CLOPIDOGREL 75 MG TAB PO SCH (16:45)
--- NOTE | 2021-07-12 17:12 | P.PN ---
Subjective Progress Note Date: 07/12/21 Patient was seen for a follow-up. Patient initially seen by Dr. Stevo Knott. Please refer to his note for details. Patient is a 60-year-old right-handed female presented with right-sided weakness. Patient's systolic blood pressure was very high at 230. Her symptoms involved the right arm and the right leg and the symptoms resolved in about couple hours. Patient also has newly diagnosed diabetes. Patient was not taking any medications at home. Patient has been diagnosed with new onset diabetes, hypertension and a TIA. Also has hyperlipidemia. At present has no symptoms. Objective - Vital Signs Vital signs: Vital Signs Temp 98.5 F 07/12/21 08:00 Pulse 88 07/12/21 08:00 Resp 18 07/12/21 08:00 BP 159/74 07/12/21 08:00 Pulse Ox 96 07/12/21 08:00 Intake & Output 07/11/21 07/12/21 07/12/21 18:59 06:59 18:59 Intake Total 540 340 Output Total 350 Balance 190 340 Weight 120.2 kg Intake: Oral 540 340 Output: Urine 350 Other: Voiding Method Toilet Toilet Toilet # Voids 1 2 1 - Exam GENERAL: The patient is morbid obese, lying in bed and is not in acute distress. CHEST: The heart rate is regular rate rhythm. No murmurs to auscultation. No carotid bruit bilaterally. LUNG: Clear to auscultation bilaterally no wheezing noted throughout. Not labored breathing. ABDOMEN/GI: Bowel sounds present in all 4 quadrants. No tenderness to palpation throughout. NEUROLOGICAL: Higher mental function: The patient is awake, alert, oriented to self, place and time. Patient is following commands. No aphasia and no neglect. Cranial nerves: The pupils are round, equal and reactive to light and accomm odation. Visual gusman are full to confrontation throughout. Extraocular movement is intact no nystagmus is noted. Facial sensation is normal to touch throughout. The facial strength is normal throughout. Hearing is normal bilaterally to hand rub. Tongue is midline and moved [id number] without any difficulty. No dysarthria is noted. Shoulder shrug is normal bilaterally. Motor: Gait is normal. The strength is 5 over 5 throughout. Normal tone and bulk. No pronator drift. Cerebellum: Normal finger to nose heel to renteria bilaterally. Sensation: Sensation is normal to touch throughout. Reflexes (right/left): 2+ throughout. Plantars are downgoing bilaterally. - Labs CBC & Chem 7: 07/11/21 07:12 07/11/21 07:12 Assessment and Plan Assessment: Transient ischemic attack with presentation of right-sided weakness. No IV TPA since the patient's symptoms resolved in about 2 hours. New onset Hypertension and on presentation was escalated in systolic of 210 to 230's. Incidental venous angioma medial left temporal lobe New onset Diabetes mellitus (HbA1c 7.7) Hyperlipidemia Morbid obesity. Plan: MRI of the brain with and without contrast revealed nonspecific white matter demyelination could be due to chronic small vessel ischemic change. Correlate to exclude multiple sclerosis, hypertension, migraine headaches, Lyme disease or vasculitis. No abnormal angioma reported. Continue dual antiplatelet medication Plavix 75 mg and aspirin 81 mg for 21 days and then stop Plavix and continue aspirin indefinitely. CTA of head and neck showed no large vessel occlusion or stenosis. Lipid panel with cholesterol 238, LDL 150.8, HDL 40 and triglycerides 236. C ontinue Lipitor 40 mg daily at bedtime. Hemoglobin A1c 7.7. Need to optimize control of diabetes. Patient wants to aggressively control her diet, and exercise before going on medication. 2-D echo revealed normal left ventricular size. Mild concentric LVH. Left ventricular systolic function is normal with EF between 60-65%. Mild aortic valve sclerosis, mild MR, and mild aortic stenosis. Mitral valve leaflets are mildly thickened. Optimize control of blood pressure. Recommend slowly decreasing blood pressure. Need to follow-up with primary physician closely as outpatient. Patient was recommended to check her blood pressures at home daily [facility] Tele[facility] monitoring showing sinus rhythm with heart rate between 60-90. No other arrhythmia. Patient may follow up with neurologist within 1-2 weeks as outpatient.
[2021-07-12] MEDS ORDERED: ATORVASTATIN 40 MG TAB PO SCH (21:00)
== END 2021-07-12 17:37 | disposition home or self-care (01) | DRG 69 ==
LOC: EC 11:22 → 3SCARD 14:14 → OBSVTOIN 07-12 11:49
PROVIDERS: ADMIT Family Medicine; ATTEND Family Medicine
DX: G45.9 Transient cerebral ischemic attack, unspecified (principal); Q28.3 Other malformations of cerebral vessels; Z68.41 Body mass index [BMI] 40.0-44.9, adult; E11.9 Type 2 diabetes mellitus without complications; E66.01 Morbid (severe) obesity due to excess calories; E78.1 Pure hyperglyceridemia; E78.5 Hyperlipidemia, unspecified; I10 Essential (primary) hypertension; I16.0 Hypertensive urgency; Z20.822 Contact with and (suspected) exposure to COVID-19
CPT/HCPCS: 36415; 70450; 70496; 70498; 70553; 71046; 80048; 80053; 80061; 81001; 83036; 84443; 84484; 85025; 85610; 85652; 85730; 87635; 93005; 93306; 99285

== ENCOUNTER → 2021-09-13 | Outpatient (CLI) | payer OTHER ==
[~2021-09-13] MED LIST: BAMLANIVIMAB (EUA) 700 MG, ETESEVIMAB (EUA) 1,400 MG in SODIUM CHLORIDE 0.9% 50 ML IVPB ONE; SODIUM CHLORIDE 0.9% 50 ML IVPB ONE; SODIUM CHLORIDE 0.9% 500 ML 500 ML in EMPTY BAG 1 BAG IV PRN
[2021-09-13 13:39] VITALS: TEMP 98.4
[2021-09-13 14:59] VITALS: BP 157/87; PULSE 82; RESP 18
== END ==
LOC: PROCWHC3 13:12
PROVIDERS: ATTEND Family Medicine
DX: U07.1 COVID-19 (principal); E66.9 Obesity, unspecified; E11.9 Type 2 diabetes mellitus without complications; Z68.41 Body mass index [BMI] 40.0-44.9, adult; Z88.5 Allergy status to narcotic agent; Z88.2 Allergy status to sulfonamides
CPT/HCPCS: 96360; J3490; M0243

== ENCOUNTER → 2021-10-14 | Outpatient (CLI) | payer OTHER ==
--- NOTE | 2021-10-14 11:58 | CONS ---
CONSULTATION DATE OF SERVICE: 10/14/2021 This 61-year-old lady has been evaluated in [facility] for possible obstructive sleep apnea-hypopnea syndrome. HISTORY OF PRESENT ILLNESS/SLEEP-WAKE EVALUATION: Patient's usual sleep schedule is from 8 p.m. to 3:30 a.m. on weekdays and until 4:30 a.m. on weekends. No problems with falling asleep, although she has TV set in bedroom. She usually sleeps on the side position. According to her , she snores and has episodes of stopped breathing during sleep. She grinds her teeth, wakes up from sleep 4 times with nocturia, dry mouth. In the morning the patient wakes up tired, has difficulties paying attention, has episodes of anxiety. Perkins Sleepiness Scale is increased to 10. She has a lot of dreaming but possibly no history of hypnagogic hallucinations, sleep paralysis or cataplexy. Usually she does not take naps. PAST MEDICAL HISTORY: Positive for hypertension, diabetes mellitus, mini-stroke, COVID-19 in August 2021. PAST SURGICAL HISTORY: Total hysterectomy, surgery for carpal tunnel syndrome on the left side. MEDICATIONS: 1. Metformin 500 mg twice a day. 2. Atorvastatin 40 mg once a day at bedtime. 3. Aspirin 81 mg once a day. 4. Amlodipine 5 mg once a day. 5. Lisinopril 10 mg once a day. SOCIAL HISTORY: Positive for smoking. Patient quit smoking 9 years ago. Alcohol consumption: None for last 12 years. REVIEW OF SYSTEMS: Multiple awakenings from sleep, tiredness and sleepiness during the day. No fevers. No double vision. No recent chest pain. No shortness of breath. No abdominal pain. No bleeding episodes. No blood in the urine. No seizure episodes. PHYSICAL EXAMINATION: GENERAL: Pleasant lady without distress. VITAL SIGNS: BP 179/70, HR 83, RR 16, height 5 feet 3-1/2 inches, weight 243.6, temperature 97.8, oxygen saturation at room air 97%. Body mass index 42.5. HEENT: PERRLA, EOMI, evaluation of oropharynx showed tongue protrudes midline. Extremely low position of soft palate; Mallampati IV. NECK: Supple, no JVD. Thyroid is not palpable. Neck measures 16 inches in circumference. LUNGS: Clear to percussion and to auscultation. Good air exchange. No wheezing or rhonchi. HEART: S1, S2 regular. No murmurs, gallops, or rubs. ABDOMEN: Obese. EXTREMITIES: No clubbing or cyanosis. COPING MACHINE OPERATOR: Awake, alert, and oriented X3. Cranial nerves 2 to 7 intact. There is no fasciculation or atrophy. noted. No focal deficits observed. IMPRESSION: 1. Snoring, witnessed episodes of stopped breathing during sleep, extremely low position of soft palate, Mallampati IV, wide neck, 16 inches in circumference, sleepiness by results of Perkins Sleepiness Scale of 10; obstructive sleep apnea- hypopnea syndrome. 2. Obesity; body mass index 42.5. 3. Hypertension. 4. Diabetes mellitus. 5. Status post mini-stroke. 6. Status post COVID-19 in August 2021. 7. Status post total hysterectomy. 8. History of carpal tunnel syndrome, status post surgical treatment on the left arm. PLAN: 1. Polysomnography for evaluation of patient's breathing during sleep. 2. CPAP/BiPAP titration if sleep study confirms obstructive sleep apnea-hypopnea syndrome. 3. Preferable position during sleep on the side. 4. No driving if patient feels any sleepiness. 5. I will see patient for follow up visit to explain results of testing and following plan. Thank you very much for referring this patient for consultation. Sincerely, Carlitos Valdes MD, PhD, FAASM Diplomat of [place] [employer] Sleep Medicine Board of [place] [employer] Marine Service Operator of [facility] [place] MMODL / IJN: [id number] /
== END ==
LOC: SLEEP 10:06
PROVIDERS: ATTEND Family Medicine
DX: G47.33 Obstructive sleep apnea (adult) (pediatric) (principal); E66.9 Obesity, unspecified; I10 Essential (primary) hypertension; E11.9 Type 2 diabetes mellitus without complications; Z86.73 Personal history of transient ischemic attack (TIA), and cerebral infarction without residual deficits; Z86.16 Personal history of COVID-19; Z90.710 Acquired absence of both cervix and uterus; Z87.39 Personal history of other diseases of the musculoskeletal system and connective tissue; Z98.890 Other specified postprocedural states; Z68.41 Body mass index [BMI] 40.0-44.9, adult; Z79.82 Long term (current) use of aspirin; Z79.84 Long term (current) use of oral hypoglycemic drugs; Z79.899 Other long term (current) drug therapy; Z87.891 Personal history of nicotine dependence; Z88.5 Allergy status to narcotic agent; Z88.2 Allergy status to sulfonamides
CPT/HCPCS: 99211

== ENCOUNTER → 2022-03-16 | Outpatient (CLI) | payer OTHER ==
--- NOTE | 2022-03-17 14:46 | SFUN ---
SLEEP CENTER FOLLOW UP NOTE DATE OF SERVICE: 03/16/2022 This 61-year-old lady has been followed in Sleep Center for treatment of obstructive sleep apnea-hypopnea syndrome. Recently the patient had a polysomnogram and PAP titration. Sleep study showed that she has moderate obstructive sleep apnea-hypopnea syndrome. I discussed results of sleep studies with the patient in detail. The patient was started on treatment with CPAP and today is her first visit after treatment was initiated. The patient feels better while she is using her CPAP equipment and is able to use it every night. Sometimes she feels that her nose is dry. I checked information from her CPAP unit. Range of the pressure is between 7 and 15 cm of water. Average pressure is 11.4 cm of water. Usage is 100% of nights for more than 4 hours, average 5 hours 7 minutes. Leak increased to 31.3 L/minute, but apnea-hypopnea index is absolutely perfect; only 0.6 for the last month. Humidifier is at the level of 4. [place] Sleepiness Scale is 7, which is normal. MEDICATIONS: Metformin, atorvastatin, aspirin, amlodipine, lisinopril. PHYSICAL EXAMINATION: GENERAL: Pleasant patient in no distress. VITAL SIGNS: BP 143/78, HR 81, RR 16, weight 237.2 pounds, height 5 feet 3-1/2 inches, temperature 97.2, oxygen saturation at room air 97%. HEENT: PERRLA, EOMI, evaluation of oropharynx showed tongue protrudes midline. Extremely low position of soft palate; Mallampati IV. NECK: Supple, no JVD. Thyroid is not palpable. LUNGS: Clear to percussion and to auscultation. Good air exchange. No wheezing or rhonchi. HEART: S1, S2 regular. No murmurs, gallops, or rubs. ABDOMEN: Obese. EXTREMITIES: No clubbing or cyanosis. IT NETWORK ARCHITECT: Awake, alert, and oriented X3. Cranial nerves 2 to 7 intact. There is no fasciculation or atrophy. noted. No focal deficits observed. IMPRESSION: 1. Moderate obstructive sleep apnea-hypopnea syndrome; apnea-hypopnea index 25.9 with oxygen desaturation to 72.3%. The patient demonstrated 100% compliance with treatment, benefitting from treatment. Normal respiration on CPAP. The patient feels dryness in the nose while using CPAP. 2. Obesity. 3. Hypertension. 4. Diabetes mellitus. 5. History of mini-stroke. 6. Status post COVID-19 in August 2021. 7. Status post hysterectomy. 8. History of carpal tunnel syndrome, status post surgical treatment on the left side. PLAN: 1. I adjusted humidity level to 6. 2. I explained to the patient about position of the machine and position of the tube and usage of humidifier. 3. Patient will continue to use PAP equipment every night for the whole night. 4. Sleep hygiene with regular time in bed for at least 7-1/2 to 8 hours. 5. Precautions related to driving. No driving if feeling sleepiness. 6. I will maintain all necessary prescription for PAP supplies including mask, tube, filters. 7. Watching weight. 8. Follow-up visit in 6 months or earlier if patient has any problems. Thank you very much for allowing me to participate in the management of your patient. Sincerely, Carlitos Valdes MD, PhD, FAASM Diplomat of [place] [employer] [employer] Sleep Medicine Board of [place] [employer] of [facility] [place] MMBENJAMINL / DIANE: [id number] /
== END ==
LOC: SLEEP 13:54
PROVIDERS: ATTEND Internal Medicine
DX: G47.33 Obstructive sleep apnea (adult) (pediatric) (principal); G47.36 Sleep related hypoventilation in conditions classified elsewhere; Z99.89 Dependence on other enabling machines and devices; E66.9 Obesity, unspecified; I10 Essential (primary) hypertension; E11.9 Type 2 diabetes mellitus without complications; Z86.73 Personal history of transient ischemic attack (TIA), and cerebral infarction without residual deficits; Z86.16 Personal history of COVID-19; Z90.710 Acquired absence of both cervix and uterus; Z87.39 Personal history of other diseases of the musculoskeletal system and connective tissue; Z98.890 Other specified postprocedural states; Z79.84 Long term (current) use of oral hypoglycemic drugs; Z79.899 Other long term (current) drug therapy; Z88.5 Allergy status to narcotic agent; Z88.2 Allergy status to sulfonamides

== ENCOUNTER → 2022-08-12 | Outpatient (CLI) | payer OTHER ==
--- NOTE | 2022-08-15 08:27 | MM ---
Reason for Exam: Screening (asymptomatic). Last mammogram was performed 11 year(s) and 6 month(s) ago. Patient History: Menarche at age 11. First Full-Term at age 20. Left ovary removed at age 49. Right ovary removed at age 49. Hysterectomy at age 49. Postmenopausal. Patient has history of breast feeding. Risk Values: [place] 5 year model risk: 1.5%. NCI Lifetime model risk: 7.0%. Prior Study Comparison: 04/13/2004 Screening Mammogram, [facility]. 07/15/2009 Bilateral Screening Mammogram, [facility]. 02/01/2011 Bilateral Screening Mammogram, [facility]. Tissue Density: There are scattered fibroglandular densities. Findings: Analyzed By CAD. There is no suspicious group of microcalcifications or new suspicious mass in either breast. Overall Assessment: Negative, BI-RAD 1 Management: Screening Mammogram of both breasts in 1 year. A clinical breast exam by your physician is recommended on an annual basis and results should be correlated with mammographic findings. Electronically signed and approved by: Aleksey Mcduffie M.D. Radiologis
== END | disposition home or self-care (01) ==
LOC: RADMAMWWP 14:54
PROVIDERS: ATTEND Family Medicine
DX: Z12.31 Encounter for screening mammogram for malignant neoplasm of breast (principal); Z78.0 Asymptomatic menopausal state
CPT/HCPCS: 77067

== ENCOUNTER → 2022-09-22 | Outpatient (CLI) | payer OTHER ==
--- NOTE | 2022-09-22 15:33 | P.PN ---
Subjective DATE: 09/22/2022 FOLLOW UP VISIT. Patient with obstructive sleep apnea hypopnea syndrome return to sleep center for follow-up visit. Information from previous visit have been reviewed. Patient is using PAP equipment every night for the whole night, getting PAP supplies in time. The patient does not have significant problems with the mask, PAP unit and humidification. [place] sleepiness scale is 8, which is normal. I checked information from PAP unit. PAP unit pressure 7-15, average 12.4 cm H2O. Usage is 100 % for more then 4 hours, average 5.8 hours per night. Leak is 16.3 l/m, which is in acceptable range. Apnea Hypopnea Index is 1.0, which is normal. MEDICATIONS:1. Metformin 500 mg twice a day 2. Amlodipine 10 mg once a day 3. Lisinopril 20 mg once a day 4. Aspirin 81 mg once a day During physical exam: GENERAL: A pleasant patient without any distress. VITAL SIGNS: BP 144/85, HR 74, RR 16 , weight 253.4, temperature 96.5, oxygen saturation at room air 99 % . HEENT: PERRLA, EOMI.low position of soft palate, Mallapati 4 . NECK: Supple. No JVD. LUNGS: Clear to percussion and to auscultation. Good air exchange. No wheezing or rhonchi. HEART: S1, S2 regular. ABDOMEN: Soft and nontender. Obese EXTREMITIES: No clubbing or cyanosis. LABORATORY ASSISTANT: Awake, alert, and oriented x3. No focal deficit. Impressions: 1. Obstructive sleep apnea-hypopnea syndrome. Patient demonstrated great compliance with treatment, benefiting from treatment. 2. Hypertension. 3. Diabetes mellitus. 4. Obesity, patient increased weight on 16 pounds. 5. History of mini stroke. 6. Status post COVID-19 in August 2021. 7. Status post hysterectomy. 8. History of carpal tunnel syndrome status post surgical treatment on the left side. Plan: 1. Continue using PAP equipment every night for the whole night. 2. To change air filter at least 1-2 times per month. 3. PAP unit should stay lower then position of the head. 4. Advised patient to remove all remaining water from humidifier canister daily and make it dry after each usage. Refill canister with fresh distilled water before each usage. 5. Sleep hygiene with regular time in bed for at least 8 hours. 6. Precautions related to driving. No driving if feel any sleepiness. 7. I will maintain prescription for PAP supplies including mask, tube, filters. 8. Follow up visit in 6 months or earlier if patient has any problems. 9. Watching and losing weight. Thank you very much for allowing me to participate in the management of your patient. Carlitos Valdes MD, PhD, FAASM. Diplomat of [place] [employer], Sleep Medicine Board by [employer] Assistant Front Desk Manager of [facility] [place]
== END ==
LOC: SLEEP 14:44
PROVIDERS: ATTEND Internal Medicine
DX: G47.33 Obstructive sleep apnea (adult) (pediatric) (principal); Z99.89 Dependence on other enabling machines and devices; E11.9 Type 2 diabetes mellitus without complications; E66.9 Obesity, unspecified; Z98.890 Other specified postprocedural states; Z90.710 Acquired absence of both cervix and uterus; Z86.16 Personal history of COVID-19; Z86.73 Personal history of transient ischemic attack (TIA), and cerebral infarction without residual deficits; Z79.84 Long term (current) use of oral hypoglycemic drugs; Z88.2 Allergy status to sulfonamides; Z88.5 Allergy status to narcotic agent
CPT/HCPCS: 99212

== ENCOUNTER → 2023-03-15 | Outpatient (CLI) | payer OTHER ==
--- NOTE | 2023-03-16 12:16 | MR ---
EXAMINATION TYPE: MR shoulder LT wo con DATE OF EXAM: 03/15/2023 COMPARISON: None. HISTORY: Left shoulder pain, difficulty lifting arm since fall injury December 05. Rotator cuff tear per order TECHNIQUE: Multiplanar, multisequence imaging of the left shoulder is performed without contrast. FINDINGS: Rotator Cuff: Complete full-thickness retracted tear of the supraspinatus tendon with some retraction to level of the acromion coronal image 16. Prominent focal fluid at this level is seen. Some increas ed signal and surrounding fluid in the infraspinatus tendon. Increased signal in the subscapularis te ndon with surrounding fluid. Rotator cuff muscle bulk is preserved. Acromioclavicular Joint: Mild to moderate narrowing and capsular hypertrophy. No significant spurring . Glenohumeral Joint: No significant spurring. Small effusion with more prominent fluid extending anter iorly and laterally. Labrum: Increased signal superior labrum consistent with tear may be degenerative in etiology. Biceps Tendon: The long head of biceps is in normal location within bicipital groove. Bone marrow signal: No focal abnormal marrow signal is appreciated. Other: No additional significant abnormality is appreciated. IMPRESSION: 1. Full-thickness retracted tear of the supraspinatus tendon. 2. Tendinosis of the infraspinatus and subscapularis tendons. Superior labral tear.
== END | disposition home or self-care (01) ==
LOC: RADMRIMAIN 14:11
PROVIDERS: ATTEND Family Medicine
DX: M75.122 Complete rotator cuff tear or rupture of left shoulder, not specified as traumatic (principal); M67.814 Other specified disorders of tendon, left shoulder

== ENCOUNTER → 2023-03-29 | Outpatient (CLI) | payer OTHER ==
--- NOTE | 2023-03-29 15:32 | P.PN ---
Subjective DATE: 03/29/2023 FOLLOW UP VISIT. Patient with obstructive sleep apnea hypopnea syndrome return to sleep center for follow-up visit. Information from previous visit have been reviewed. Patient is using PAP equipment every night for the whole night, getting PAP supplies in time. The patient does not have significant problems with the mask, PAP unit and humidification. [place] sleepiness scale is 17. I checked information from PAP unit. PAP unit pressure 7-15, average 11.8 cm H2O. Usage is 100% and 80 % for more then 4 hours, average 5.25 hours per night. Leak is 17.3 l/m, which is in acceptable range. Apnea Hypopnea Index is 0.8, which is normal. MEDICATIONS:1. Amlodipine 10 mg once a day 2. Lisinopril 20 mg once a day 3. Metformin 500 mg twice a day 4. Aspirin 81 mg once a day 5. [] 6. [] 7. [] 8. [] During physical exam: GENERAL: A pleasant patient without any distress. VITAL SIGNS: BP 151/81, HR 75, RR 12 , weight 261.6, temperature 97.1, oxygen saturation at room air 98 % . HEENT: PERRLA, EOMI.low position of soft palate, Mallapati 4 . NECK: Supple. No JVD. LUNGS: Clear to percussion and to auscultation. Good air exchange. No wheezing or rhonchi. HEART: S1, S2 regular. ABDOMEN: Soft and nontender. Obese EXTREMITIES: No clubbing or cyanosis. BRAND MARKETING COORDINATOR: Awake, alert, and oriented x3. No focal deficit. Impressions: 1. Obstructive sleep apnea-hypopnea syndrome. Patient demonstrated great compliance with treatment, benefiting from treatment. 2. Hypertension. 3. Diabetes mellitus. 4. History of mini stroke. 5. Obesity, patient increased her wait on these pounds comparing with previous visit. 6. Status post hysterectomy. 7. History of carpal tunnel syndrome. 8. Status post COVID-19 in 2020. Plan: 1. Continue using PAP equipment every night for the whole night. 2. To change air filter at least 1-2 times per month. 3. PAP unit should stay lower then position of the head. 4. Advised patient to remove all remaining water from humidifier canister daily and make it dry after each usage. Refill canister with fresh distilled water before each usage. 5. Sleep hygiene with regular time in bed for at least 8 hours. 6. Precautions related to driving. No driving if feel any sleepiness. 7. I will maintain prescription for PAP supplies including mask, tube, filters. 8. Watching and losing weight. 9. Follow up visit in 6 months or earlier if patient has any problems. Thank you very much for allowing me to participate in the management of your patient. Carlitos Valdes MD, PhD, FAASM. Diplomat of [place] [employer], Sleep Medicine Board by [place] [employer] Brand Marketing Coordinator of [facility] [place]
== END ==
LOC: 3 N SLEEP 15:03
PROVIDERS: ATTEND Internal Medicine
DX: G47.33 Obstructive sleep apnea (adult) (pediatric) (principal); Z86.16 Personal history of COVID-19; I10 Essential (primary) hypertension; E11.9 Type 2 diabetes mellitus without complications; Z86.73 Personal history of transient ischemic attack (TIA), and cerebral infarction without residual deficits; G56.00 Carpal tunnel syndrome, unspecified upper limb; Z98.890 Other specified postprocedural states; Z99.89 Dependence on other enabling machines and devices; Z88.5 Allergy status to narcotic agent; Z88.2 Allergy status to sulfonamides; E66.9 Obesity, unspecified; Z79.84 Long term (current) use of oral hypoglycemic drugs; Z79.82 Long term (current) use of aspirin; Z79.899 Other long term (current) drug therapy
CPT/HCPCS: 99212